=== PATIENT | female | born 1990 | race American Indian/Alaskan Native ===

== ENCOUNTER 2017-07-20 15:12 | Emergency (ER) | payer MEDICAID ==
[2017-07-20 16:22] VITALS: BP 149/93
[2017-07-20 17:07] LABS: Basophils % (Auto) 0.3 % (0.0-1.8); Eosinophils % (Auto) 0.8 % (0.0-4.3); Hematocrit 37.9 % (30.3-42.9); Hemoglobin 13.2 gm/dl (10.1-14.3); Mean Corpuscular HGB Conc 35 % (30-34); Mean Corpuscular Hemoglobin 30 pg (28-32); Mean Corpuscular Volume 87 fl (79-97); Platelet Count 332 K/mm3 (140-440); Red Blood Count 4.34 M/mm3 (3.65-5.03); Red Cell Distribution Width 18.4 % (13.2-15.2); White Blood Count 9.6 K/mm3 (4.5-11.0)
[2017-07-20 17:14] LABS: Bacteria,Urine 1+ /HPF (Negative); Bilirubin,Urine NEG (Negative); Blood,Urine NEG (Negative); Ketones,Urine 20 mg/dL (Negative); Leukocyte Esterase,Urine TR (Negative); Mucus,Urine 2+ /HPF; Nitrite,Urine NEG (Negative)
[2017-07-20 17:38] LABS: Anion Gap 20 mmol/L; BUN/Creatinine Ratio 23; Blood Urea Nitrogen 9 mg/dL (7-17); Calcium 9.8 mg/dL (8.4-10.2); Carbon Dioxide 25 mmol/L (22-30); Chloride 94.6 mmol/L (98-107); Glucose 100 mg/dL (65-100); Potassium 3.5 mmol/L (3.6-5.0); Sodium 136 mmol/L (137-145)
== END 2017-07-21 03:30 | disposition left against medical advice (07) ==
LOC: ED 15:12
DX: R11.2 Nausea with vomiting, unspecified (principal); Z53.21 Procedure and treatment not carried out due to patient leaving prior to being seen by health care provider
CPT/HCPCS: 36415; 80048; 81001; 84703; 85025

== ENCOUNTER 2018-01-26 13:45 | Outpatient (CLI) | payer MEDICAID ==
[2018-01-26] MEDS ORDERED: LACTATED RINGERS 1,000 ML ONE (14:35)
[2018-01-26] MEDS ORDERED: LACTATED RINGERS 1,000 ML IV ONE (14:36)
[2018-01-26 15:38] LABS: Bacteria,Urine 1+ /HPF (Negative); Bilirubin,Urine NEG (Negative); Blood,Urine SM (Negative); Color,Urine Yellow (Yellow); Mucus,Urine FEW /HPF; Protein,Urine <15 mg/dL mg/dL (Negative)
[2018-01-26 15:46] LABS: Hematocrit 35.2 % (30.3-42.9); Hemoglobin 11.8 gm/dl (10.1-14.3); Mean Corpuscular HGB Conc 33 % (30-34); Mean Corpuscular Hemoglobin 29 pg (28-32); Mean Corpuscular Volume 86 fl (79-97); Platelet Count 216 K/mm3 (140-440); Red Blood Count 4.08 M/mm3 (3.65-5.03); Red Cell Distribution Width 15.3 % (13.2-15.2)
[2018-01-26 15:58] LABS: Alanine Aminotransferase < 5 units/L (7-56)
[2018-01-26] MEDS ORDERED: VISTARIL PO ONE (16:00)
[2018-01-26 16:09] LABS: Uric Acid 2.2 mg/dL (3.5-7.6)
[2018-01-26 16:35] VITALS: BP 122/72
--- NOTE | 2018-01-27 08:40 | Ultrasound Report ---
FINAL REPORT EXAM: US OB BPP WO NON-STRESS HISTORY: elevated b/p COMPARISONS: None. FINDINGS: Transabdominal grayscale, color and M-mode 3rd trimester ultrasound biophysical profile Biophysical profile score is 8/8. Single living intrauterine with recorded cardiac activity of 138 beats per minute. Amniotic Fluid maximal vertical pocket demonstrated on this ultrasound is 2.9 cm. IMPRESSION: Single living intrauterine with biophysical profile score of 8/8.
--- NOTE | 2018-01-27 08:54 | Ultrasound Report ---
FINAL REPORT EXAM: US OB > = 14 WEEKS FETUS HISTORY: PIH COMPARISONS: None. FINDINGS: Transabdominal grayscale, color Doppler and M-mode limited 3rd trimester ultrasound Single living intrauterine with recorded cardiac activity of 133 beats per minute. Amniotic fluid volume is within normal limits and amniotic fluid index is approximately 8 cm. Presentation is cephalic. No evident placenta previa. Cervix appears closed and measures approximately 3.1 cm in length. The placenta is fundal in location and demonstrates linear echogenic septation like structures and calcifications. Biparietal diameter is 8.8 cm Head circumference is 32.3 cm Abdominal circumference is 34.1 cm Femoral length is 6.9 cm Estimated gestational age based on biometry composite measurements is 36 weeks 2 days. Imaged portions of the anatomy are grossly unremarkable. The skin line overlying the spine, abdominal umbilical cord insertions, and the cerebellum and lateral ventricles are incompletely visualized. Extremities are incompletely visualized. IMPRESSION: Single living intrauterine with estimated gestational age of 36 weeks 2 days. No evident placenta previa. The placenta demonstrates echogenic septations and suggested calcifications, which may be secondary to hypertension.
== END 2018-01-26 16:55 | disposition home or self-care (01) ==
LOC: TRG 13:45
PROVIDERS: ATTEND Obstetrics & Gynecology
DX: O47.03 False labor before 37 completed weeks of gestation, third trimester (principal); Z3A.36 36 weeks gestation of pregnancy
CPT/HCPCS: 36415; 59025; 76805; 76819; 81001; 82565; 83615; 84450; 84460; 84550; 85027; 96360; J7120; Q0177

== ENCOUNTER 2018-02-03 10:30 | Outpatient (CLI) | payer MEDICAID ==
[2018-02-03 11:22] LABS: Bacteria,Urine 2+ /HPF (Negative); Bilirubin,Urine NEG (Negative); Blood,Urine NEG (Negative); Color,Urine Yellow (Yellow); Mucus,Urine 1+ /HPF
[2018-02-03 11:36] LABS: Amphetamine Screen,Urine PRESUMPTIVE NEGATIVE; Benzodiazepines Screen,Urine PRESUMPTIVE NEGATIVE; Cocaine Screen,Urine PRESUMPTIVE NEGATIVE; Methadone Screen,Urine PRESUMPTIVE NEGATIVE; Opiate Screen,Urine PRESUMPTIVE NEGATIVE
[2018-02-03 11:39] LABS: Basophils % (Auto) 0.2 % (0.0-1.8); Eosinophils # (Auto) 0.2 K/mm3 (0.0-0.4); Eosinophils % (Auto) 2.1 % (0.0-4.3); Hematocrit 33.9 % (30.3-42.9); Hemoglobin 10.9 gm/dl (10.1-14.3); Lymphocytes # (Auto) 1.9 K/mm3 (1.2-5.4); Mean Corpuscular HGB Conc 32 % (30-34); Mean Corpuscular Hemoglobin 27 pg (28-32); Mean Corpuscular Volume 85 fl (79-97); Monocytes # (Auto) 0.8 K/mm3 (0.0-0.8); Monocytes % (Auto) 10.2 % (0.0-7.3); Platelet Count 282 K/mm3 (140-440); Red Cell Distribution Width 15.5 % (13.2-15.2)
[2018-02-03 11:50] LABS: Cannabinoid Screen,Urine PRESUMPTIVE POSITIVE
[2018-02-03] MEDS ORDERED: LACTATED RINGERS 1,000 ML IV SCH (12:00)
[2018-02-03 12:02] LABS: Uric Acid 2.4 mg/dL (3.5-7.6)
[2018-02-03 12:10] VITALS: BP 129/85
[2018-02-03 12:15] LABS: Alanine Aminotransferase < 5 units/L (7-56)
[2018-02-03] MEDS ORDERED: ZOFRAN ONE (12:58)
--- NOTE | 2018-02-03 13:28 | Ultrasound Report ---
ULTRASOUND OB LIMITED History: well being Technique: Transabdominal ultrasound with Doppler interrogation. Gestation: Single Position: Cephalic Amniotic Fluid: Normal JUSTIN = 11.8 cm Heart Rate: 137 BPM
--- NOTE | 2018-02-03 13:28 | Ultrasound Report ---
ULTRASOUND BIOPHYSICAL PROFILE: History: well being Technique: Transabdominal ultrasound with Doppler interrogation. 2 - breathing movements 2 - movements 2 - posture and tone 2 - Qualitative amniotic fluid volume 8 - TOTAL SCORE OF POSSIBLE 8 Heart Rate (bpm) 137
[2018-02-03] MEDS ORDERED: ZOFRAN IM ONE (13:58)
== END 2018-02-03 13:27 | disposition home or self-care (01) ==
LOC: TRG 10:30
PROVIDERS: ATTEND Obstetrics & Gynecology
DX: O47.1 False labor at or after 37 completed weeks of gestation (principal); Z3A.38 38 weeks gestation of pregnancy
CPT/HCPCS: 36415; 59025; 76815; 76819; 80307; 81001; 82565; 83615; 84450; 84460; 84550; 85025; 86592; 86706; 86762; 86850; 86900; 86901; 87806; 96360; 96361; J2405